=== PATIENT | female | born 1985 | race Caucasian/White ===

== ENCOUNTER 2020-08-21 17:05 | Outpatient (CLI) | payer BC ==
[2020-08-21] MEDS ORDERED: BETAMET ACET-BETAMETH SOD PHOS 6 MG/ML MDV IM SCH (18:45)
[2020-08-21 18:56] VITALS: BP 120/56; PULSE 94; RESP 16; TEMP 96.8
--- NOTE | 2020-09-12 15:31 | P.MSEPDOC ---
Presenting Problems - Arrival Data Date of Arrival on Unit: 08/21/20 Time of Arrival on Unit: 17:05 Mode of Transport: Ambulatory - Complaint OB-Reason for Admission/Chief Complaint: Possible Onset of Labor Comment: Contractions x 1 wk, increasing today, loss of mucus plug Medical History - Information : 5 Para: 4 Term: 4 : 0 Abortions: Spontaneous or Elective: 0 Number of Living Children: 4 - Gestational Age Gestational Age by HOLDEN (wks/days): 34 Weeks and 3 Days Review of Systems - Review of Systems Constitutional: No problems Breast: No problems ENT: No problems Cardiovascular: No problems Respiratory: No problems Gastrointestinal: No problems Genitourinary: No problems Musculoskeletal: No problems Neurological: No problems Skin: No problems Vital Signs - Temperature Temperature: 96.8 F Temperature Source: Tympanic - Pulse Right Sitting Brachial Pulse Rate: 94 Pulse Assessment Method: Automatic Cuff - Respirations Respiratory Rate: 16 Oxygen Delivery Method: Room Air O2 Sat by Pulse Oximetry: 100 - Blood Pressure Right Arm Sitting Blood Pressure: 120/56 Blood Pressure Mean: 77 Blood Pressure Source: Automatic Cuff Medical Screen Scoring (Pre) - Cervical Exam Dilation: 1-3 cm = 1 Effacement: Exam Deferred Membranes: Intact - Uterine Contractions Frequency: > 5 minutes apart = 1 Duration: N/A Intensity: N/A - Maternal Vital Signs Maternal Temperature: N/A Maternal Blood Pressure: N/A Signs of Preeclampsia: N/A Maternal Respirations: N/A - Maternal Trauma Maternal Trauma: N/A - Assessment - Baby A Baseline FHR: 135 Heart Rate - NICHD Category: Category I (Normal) = 0 NST: Reactive Position: N/A Station: N/A - Total Score - Baby A Total Score - Baby A: 2 - Total Score - Baby B Total Score - Baby B: 2 - Total Score - Baby C Total Score - Baby C: 2 - Level of Risk - Baby A Level of Risk - Baby A: Low (0-5) - Level of Risk - Baby B Level of Risk - Baby B: Low (0-5) - Level of Risk - Baby C Level of Risk - Baby C: Low (0-5) Physician Notification (Pre) - Physician Notified Physician Notified Date: 08/21/20 Physician Notified Time: 18:35 New Order Received: Yes - Notification Comment Comment: Ernestine zambrano\Dr. Painting, FFN +, SVE 1/thick/-3, firm. No change in SVE after 1 hr, irregular contractions. Orders rec'd for celestone, return for second celestone tomorrow, discharge home c\ labor precautions and follow up next week as scheduled. Disposition - Disposition OB Disposition: Discharge to home, Written follow up instructions reviewed Discharge Date: 08/21/20 Discharge Time: 18:55 I agree with the RN Medical Screening Exam: Yes Physician's MSE Comment: Patient was not seen or examined by myself Case reviewed; plan agreed upon as documented in EMR&OBIX.: Yes Diagnosis: FALSE LABOR BEFORE 37 COMPLETED WEEKS OF GEST, THIRD TRI
== END 2020-08-21 18:55 | disposition home or self-care (01) ==
LOC: FBPOP 17:05
PROVIDERS: ATTEND Obstetrics & Gynecology Obstetrics
DX: O47.03 False labor before 37 completed weeks of gestation, third trimester (principal); Z3A.34 34 weeks gestation of pregnancy
CPT/HCPCS: 59025; 99214; 96372; 82731; J0702

== ENCOUNTER 2020-08-22 18:20 | Outpatient (CLI) | payer BC ==
[2020-08-22] MEDS ORDERED: BETAMET ACET-BETAMETH SOD PHOS 6 MG/ML MDV IM SCH (19:00)
[2020-08-22 19:12] VITALS: BP 109/55; PULSE 82; RESP 16; TEMP 97.4
--- NOTE | 2020-09-12 15:34 | P.MSEPDOC ---
Presenting Problems - Arrival Data Date of Arrival on Unit: 08/22/20 Time of Arrival on Unit: 18:15 Mode of Transport: Ambulatory - Complaint OB-Reason for Admission/Chief Complaint: Celestone Injection Comment: repeat celestone Medical History - Information : 5 Para: 4 Term: 4 Number of Living Children: 4 - Gestational Age Gestational Age by HOLDEN (wks/days): 34 Weeks and 4 Days Review of Systems - Review of Systems Constitutional: No problems Breast: No problems ENT: No problems Cardiovascular: No problems Respiratory: No problems Gastrointestinal: No problems Genitourinary: No problems Musculoskeletal: No problems Neurological: No problems Skin: No problems Vital Signs - Temperature Temperature: 97.4 F Temperature Source: Temporal Artery Scan - Pulse Apical Pulse Rate: 82 Pulse Assessment Method: Automatic Cuff - Respirations Respiratory Rate: 16 Oxygen Delivery Method: Room Air - Blood Pressure Right Arm Blood Pressure: 109/55 Blood Pressure Mean: 73 Blood Pressure Source: Automatic Cuff Medical Screen Scoring (Pre) - Cervical Exam Dilation: Exam Deferred Effacement: Exam Deferred Membranes: Intact - Uterine Contractions Frequency: N/A Duration: N/A Intensity: N/A - Maternal Vital Signs Maternal Temperature: N/A Maternal Blood Pressure: N/A Signs of Preeclampsia: N/A Maternal Respirations: N/A - Maternal Trauma Maternal Trauma: N/A - Assessment - Baby A Baseline FHR: 140 Heart Rate - NICHD Category: Category I (Normal) = 0 NST: Reactive Position: N/A Station: N/A - Total Score - Baby A Total Score - Baby A: 0 - Total Score - Baby B Total Score - Baby B: 0 - Total Score - Baby C Total Score - Baby C: 0 - Level of Risk - Baby A Level of Risk - Baby A: Low (0-5) - Level of Risk - Baby B Level of Risk - Baby B: Low (0-5) - Level of Risk - Baby C Level of Risk - Baby C: Low (0-5) Physician Notification (Pre) - Physician Notified Physician Notified Date: 08/22/20 Physician Notified Time: 18:50 New Order Received: Yes (discharged home with instructions) - Notification Comment Comment: repeat celestone injection given Disposition - Disposition OB Disposition: Discharge to home Discharge Date: 02/05/21 Discharge Time: 19:10 I agree with the RN Medical Screening Exam: Yes Physician's MSE Comment: Patient was not seen or examined by myself Case reviewed; plan agreed upon as documented in EMR&OBIX.: Yes Diagnosis: LABOR WITHOUT DELIVERY, THIRD TRIMESTER
== END 2020-08-22 19:10 | disposition home or self-care (01) ==
LOC: FBPOP 18:20
PROVIDERS: ATTEND Obstetrics & Gynecology Obstetrics
DX: O60.03 Preterm labor without delivery, third trimester (principal); Z3A.34 34 weeks gestation of pregnancy
CPT/HCPCS: 59025; 96372; J0702; 99213

== ENCOUNTER 2020-08-31 09:13 | Outpatient (CLI) | payer BC ==
[2020-08-31 11:33] VITALS: BP 116/69; PULSE 88; RESP 18; TEMP 98.1
== END 2020-08-31 10:25 | disposition home or self-care (01) ==
LOC: FBPOP 09:13
PROVIDERS: ATTEND Obstetrics & Gynecology
DX: O26.93 Pregnancy related conditions, unspecified, third trimester (principal); Z3A.35 35 weeks gestation of pregnancy
CPT/HCPCS: 59025; 84112; 99213

== ENCOUNTER 2020-09-12 06:00 | Inpatient (IN) | payer BC, MEDICAID ==
[2020-09-12] MEDS ORDERED: TERBUTALINE 1 MG/ML VIAL SQ PRN (13:00)
[2020-09-12] MEDS ORDERED: LIDOCAINE 0.5% (PF) 5 MG/ML (50 ML SDV) SQ PRN (13:00)
[2020-09-12] MEDS ORDERED: OXYTOCIN 10 UNIT/ML 1 ML VIAL IM PRN (13:00)
[2020-09-12] MEDS ORDERED: LACTATED RINGERS 1,000 ML IV SCH (13:00)
[2020-09-12] MEDS ORDERED: METHYLERGONOVINE 0.2 MG/ML 1 ML AMP IM PRN (13:00)
[2020-09-12] MEDS ORDERED: OXYTOCIN 30 UNITS/500 ML NS 30 UNIT in SALINE 1 500ML.BAG IV SCH ×2 (13:00→21:30)
[2020-09-12] MEDS ORDERED: CARBOPROST TROMETHAMINE 250 MCG/ML 1 ML AMP IM PRN (13:00)
[2020-09-12 13:22] LABS: Basophils % (A) 0 %; Eosinophils # (A) 0.2 k/uL (0-0.7); Eosinophils % (A) 2 %; HCT 34.2 % (34.0-46.0); HGB 11.4 gm/dL (11.4-16.0); Lymphocytes # (A) 2.6 k/uL (1.0-4.8); Lymphocytes % (A) 21 %; MCH 31.1 pg (25.0-35.0); MCHC 33.4 g/dL (31.0-37.0); MCV 93.2 fL (80.0-100.0); Mean Platelet Volume 9.1; Monocytes # (A) 0.6 k/uL (0-1.0); Monocytes % (A) 5 %; Neutrophils % (A) 71 %; Platelet Count 273 k/uL (150-450); RBC 3.67 m/uL (3.80-5.40); RDW 14.1 % (11.5-15.5); WBC 12.6 k/uL (3.8-10.6)
[2020-09-12 13:33] LABS: ALT 14 U/L (4-34); AST 18 U/L (14-36); African American GFR (CKD) >90 (>60 ml/min/1.73 sqM); Blood Urea Nitrogen 7 mg/dL (7-17); LDH 313 U/L (313-618); Non-African American GFR(CKD) >90 (>60 ml/min/1.73 sqM); Uric Acid 3.2 mg/dL (3.7-7.4)
[2020-09-12 13:58] LABS: INR 0.8 (<1.2); Prothrombin Time 9.3 sec (9.0-12.0)
[2020-09-12 14:03] LABS: Partial Thromboplastin Time 21.1 sec (22.0-30.0)
[2020-09-12] MEDS: BUTORPHANOL 1 MG/ML 1 ML VIAL IV PRN ×2 (19:22→21:08)
[2020-09-12] MEDS ORDERED: LIDOCAINE 2% GEL 30 ML TUBE TOPICAL ONE (19:32)
[2020-09-12] MEDS ORDERED: HYDROCORTISONE 2.5% RECTAL CREAM 30 GM TUBE RECTAL PRN (21:24)
[2020-09-12] MEDS ORDERED: diphenhydrAMINE 50 MG/ML 1 ML VIAL IVP PRN ×2 (21:24)
[2020-09-12] MEDS ORDERED: ZOLPIDEM 5 MG TAB PO PRN (21:24)
[2020-09-12] MEDS ORDERED: diphenhydrAMINE 25 MG CAP PO PRN (21:24)
[2020-09-12] MEDS ORDERED: LANOLIN CREAM 5 GM TUBE TOPICAL PRN (21:24)
[2020-09-12] MEDS ORDERED: BENZOCAINE/MENTHOL SPRAY 1 GM/SPRAY AEROSOL TOPICAL PRN (21:24)
[2020-09-12] MEDS ORDERED: diphenhydrAMINE 50 MG CAP PO PRN (21:24)
[2020-09-12] MEDS ORDERED: IBUPROFEN 600 MG TAB PO PRN (21:24)
[2020-09-12] MEDS ORDERED: SIMETHICONE 80 MG CHEWABLE PO PRN (21:24)
--- NOTE | 2020-09-12 21:27 | P.PROBDLV ---
Vaginal Delivery Note - . Vaginal Delivery Note: This is a 35-year-old 5 para 4004 at 37-4/7 weeks that presented to the labor and delivery from the office after noting contractions every 10 minutes and states she wasn't feeling well. Patient has a significant medical history for further details please see the dictated history and physical. Patient was admitted to labor and delivery and Pitocin induction of labor was begun. She underwent amniotomy and clear fluid was obtained. Patient progressed through labor eventually Becoming complete. Patient started pushing and with good maternal effort she had a normal spontaneous vaginal delivery of a viable male infant at 2057, weight of 7 lbs. 6 oz. and Apgars of 9 and 9 at one and 5 minutes respectively. After two-minute delayed the local cord was doubly clamped and cut and the infant was handed off to the maternal abdomen. The placenta was delivered spontaneously intact with a three-vessel cord being noted. A first 3 vaginal laceration was noted. A rectal exam was performed and noted to be normal in nature. The uterus was noted be firm and b elow the umbilicus. A straight blood loss 100 mL. Patient and tolerated delivery well and are resting comfortably.
--- NOTE | 2020-09-12 21:28 | P.HPOB ---
History of Present Illness H&P Date: 09/12/20 Chief Complaint: IUP at 37 and 4/sevenths weeks, AMA, history of PE/DVT This is a 35-year-old 5 para 4004 at 37-4/7 weeks that presented to the office for routine visit. Patient states she has been not feeling well over the evening, she notes dizziness, headache, overall generalized malaise. On appearance she appeared ill, She does note good movement. Patient had a reactive NST in the office. Patient states she is nicanor every 10 minutes and there uncomfortable. On cervical exam she is 2/70/-2 station. She states she did not take her Lovenox this morning. Patient states she feels contractions are getting more uncomfortable, given her complicated medical history patient is sent to labor and delivery for planned induction of labor. On bloodwork this patient is a blood type of A- for which she receive program at 28 weeks, rubella status immune, RPR nonreactive, hepBSag surface antigen negative, HIV negative she did pass her one-hour Glucola, date of program was 07/07. GBS was negative on 09/03. Review of Systems Constitutional: Reports as per HPI, Reports fatigue, Denies chills, Denies fever Ears, nose, mouth and throat: Reports headache Cardiovascular: Reports leg edema Respiratory: Reports dyspnea Gastrointestinal: Denies constipation, Denies diarrhea, Denies nausea, Denies vomiting Genitourinary: Reports Past Medical History Past Medical History: Asthma, Deep Vein Thrombosis (DVT), Pulmonary Embolus (PE) Additional Past Medical History / Comment(s): pituitary tumor History of Any Multi-Drug Resistant Organisms: None Reported Past Surgical History: Adenoidectomy, Tonsillectomy Past Anesthesia/Blood Transfusion Reactions: No Reported Reaction Past Psychological History: Anxiety, Depression, Panic Disorder, PTSD Smoking Status: Never smoker Past Alcohol Use History: Occasional Past Drug Use History: None Reported - Past Family History Daughter(s) Additional Family Medical History / Comment(s): autism Mother Family Medical History: Cancer Medications and Allergies Home Medications Medication Instructions Recorded Confirmed Type Aspirin 81 mg PO DAILY MDD 81 mg 08/21/20 09/12/20 History Enoxaparin [Lovenox] 60 mg SQ Q12H MDD 120 mg 08/21/20 09/12/20 History Iron 325 mg PO DAILY MDD 325 mg 08/21/20 09/12/20 History Pnv 11/Iron Fum/Folic Acid/Om3 1 each PO DAILY MDD 1 tab 08/21/20 09/12/20 History [Virt-Joe Dha Softgel] Albuterol Inhaler [Ventolin Hfa 2 puff INHALATION RT-TID MDD 6 08/31/20 09/12/20 History Inhaler] puffs Allergies Allergy/AdvReac Type Severity Reaction Status Date / Time hydromorphone [From Dilaudid] Allergy Rash/Hives Verified 09/12/20 12:56 rivaroxaban [From Xarelto] Allergy Rash/Hives Verified 09/12/20 12:56 Exam Osteopathic Statement: *. No significant issues noted on an osteopathic structural exam other than those noted in the History and Physical/Consult. 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 Results Result Diagrams: 09/12/20 12:54 09/12/20 12:54 Abnormal Lab Results - Last 24 Hours (Table) 09/12/20 09/12/20 09/12/20 Range/Units 12:54 12:54 12:54 WBC 12.6 H (3.8-10.6) k/uL RBC 3.67 L (3.80-5.40) m/uL Neutrophils # 9.0 H (1.3-7.7) k/uL APTT 21.1 L (22.0-30.0) sec Fibrinogen 613 H (200-500) mg/dL Creatinine 0.45 L (0.52-1.04) mg/dL Uric Acid 3.2 L (3.7-7.4) mg/dL Assessment and Plan (1) 37 weeks gestation of Current Visit: Yes Status: Acute Code(s): Z3A.37 - 37 WEEKS GESTATION OF SNOMED Code(s): 30038932 (2) AMA (advanced maternal age) multigravida 35+ Current Visit: Yes Status: Acute Code(s): O09.529 - SUPERVISION OF ELDERLY MULTIGRAVIDA, UNSPECIFIED TRIMESTER SNOMED Code(s): 545781330 (3) DVT (deep venous thrombosis) Current Visit: Yes Status: Acute Code(s): I82.409 - ACUTE EMBOLISM AND THOMBOS UNSP DEEP VN UNSP LOWER EXTREMITY SNOMED Code(s): 283886140 (4) Pulmonary embolism Current Visit: Yes Status: Acute Code(s): I26.99 - OTHER PULMONARY EMBOLISM WITHOUT ACUTE COR PULMONALE SNOMED Code(s): 24810446 Plan: This 35-year-old at 37-4/7 weeks presents for induction of labor secondary to AMA, history of DVT/PE be a on Lovenox. Last Lovenox dose was 9 PM. Patient is ill-appearing today stating she doesn't feel well, notes dizziness, headache. Patient has been seen MFM at [facility] for high-risk care. Consults are on chart. Patient has had some fall off of growth although growth has been noted to be normal. Patient was seen on labor and delivery proximally 2 weeks ago in addition and received steroids for positive fibronectin and contractions. Pitocin is begun per hospital protocol, amniotomy is performed, anesthesia is counseled for epidural and recommendations given her Lovenox use.
[2020-09-13] MEDS: ACETAMINOPHEN TAB 325 MG TAB PO PRN ×5 (01:14→21:55)
[2020-09-13] MEDS: SENNOSIDES-DOCUSATE SODIUM 1 EACH TAB PO SCH ×2 (08:03→19:55)
--- NOTE | 2020-09-13 10:18 | P.PNOBGVD ---
Subjective - Subjective Principal diagnosis: day 1 status post normal spontaneous vaginal delivery Interval history: Patient is doing well . She is involuting and voiding without difficulty. She states her lochia is minimal. She is breast-feeding. She states her pain is well-controlled. Patient reports: Reports appetite normal, Reports voiding normally, Reports pain well controlled, Reports ambulating normally [place]: doing well Objective - Latest Vital Signs Latest vital signs: Vital Signs Temp Pulse Resp BP Pulse Ox 09/13/20 08:00 98.2 F 70 14 99/58 09/13/20 04:00 97.2 F L 62 16 110/67 09/13/20 00:00 98.4 F 62 16 127/73 09/12/20 23:15 97.1 F L 49 L 16 114/57 09/12/20 22:15 97.9 F 80 16 130/69 09/12/20 22:00 98.2 F 82 16 106/55 09/12/20 21:45 97.7 F 77 16 110/59 09/12/20 21:30 97.7 F 80 16 112/55 09/12/20 21:15 97.9 F 75 16 119/64 09/12/20 12:56 98.2 F 93 18 118/74 99 Intake and Output 09/12/20 09/13/20 09/13/20 22:59 06:59 14:59 Output Total 350 Balance -350 Output: Estimated Blood Loss 350 Other: # Voids 2 2 - Exam Extremities: Present: normal, edema Abdomen: Present: normal appearance, soft Uterus: Present: normal, firm - Labs Labs: Abnormal Lab Results - Last 24 Hours (Table) 09/12/20 09/12/20 09/12/20 Range/Units 12:54 12:54 12:54 WBC 12.6 H (3.8-10.6) k/uL RBC 3.67 L (3.80-5.40) m/uL Neutrophils # 9.0 H (1.3-7.7) k/uL APTT 21.1 L (22.0-30.0) sec Fibrinogen 613 H (200-500) mg/dL Creatinine 0.45 L (0.52-1.04) mg/dL Uric Acid 3.2 L (3.7-7.4) mg/dL Assessment and Plan (1) 37 weeks gestation of Current Visit: Yes Status: Acute Code(s): Z3A.37 - 37 WEEKS GESTATION OF SNOMED Code(s): 41526005 (2) AMA (advanced maternal age) multigravida 35+ Current Visit: Yes Status: Acute Code(s): O09.529 - SUPERVISION OF ELDERLY MULTIGRAVIDA, UNSPECIFIED TRIMESTER SNOMED Code(s): 533692255 (3) DVT (deep venous thrombosis) Current Visit: Yes Status: Acute Code(s): I82.409 - ACUTE EMBOLISM AND THOMBOS UNSP DEEP VN UNSP LOWER EXTREMITY SNOMED Code(s): 123356622 (4) Pulmonary embolism Current Visit: Yes Status: Acute Code(s): I26.99 - OTHER PULMONARY EMBOLISM WITHOUT ACUTE COR PULMONALE SNOMED Code(s): 59303535 (5) Status post vaginal delivery Current Visit: Yes Status: Acute Code(s): NZL9253 - SNOMED Code(s): 038285213 Plan: Patient is doing well . Bleeding is expected for vaginal delivery, w ill restart Lovenox this morning. Anticipate discharge home tomorrow
[2020-09-13] MEDS: ENOXAPARIN 60 MG/0.6 ML SYRINGE SQ SCH ×2 (10:50→21:55)
[2020-09-13] MEDS ORDERED: Rhogam IMMUNE GLOBULIN 1,500 UNIT/1 ML IM ONE (11:33)
--- NOTE | 2020-09-14 08:22 | P.DS ---
Providers Date of admission: 09/12/20 12:30 Expected date of discharge: 09/14/20 Attending physician: Germaine Painting Primary care physician: Stated None - Discharge Diagnosis(es) (1) 37 weeks gestation of Current Visit: Yes Status: Acute (2) AMA (advanced maternal age) multigravida 35+ Current Visit: Yes Status: Acute (3) DVT (deep venous thrombosis) Current Visit: Yes Status: Acute (4) Pulmonary embolism Current Visit: Yes Status: Acute (5) Status post vaginal delivery Current Visit: Yes Status: Acute Hospital Course: This is a 35-year-old G5 now P5 status post normal spontaneous vaginal delivery of viable male , weight of 7 lbs. 6 oz. at 2057 on 09/12. Patient is a known patient to myself with a, located history of PE/DVT that has been seeing [facility] for maternal- medicine care. Patient had been on Lovenox extremely milligrams subcutaneously twice a day. Patient did well through the . Growth was noted to be good throughout. Patient presented for routine visit on Tuesday and was ill in appearance. Patient noted to be nicanor and uncomfortable. Patient was sent to labor and delivery and admitted. Patient did well with delivery although unable to receive an epidural secondary to Lovenox timing. Patient's post course has been uneventful. She restarted her Lovenox approximate 12 hours after delivery and bleeding has been moderate/normal. Patient is noted to be ambulating and voiding without difficulty. She is tolerating a regular diet without nausea or vomiting. She is breast-feeding. She would like discharge home today. Patient Condition at Discharge: Good Plan - Discharge Summary New Discharge Prescriptions: No Action Aspirin 81 mg PO DAILY MDD 81 mg Enoxaparin [Lovenox] 60 mg SQ Q12H MDD 120 mg Pnv 11/Iron Fum/Folic Acid/Om3 [Virt-Joe Dha Softgel] 1 each PO DAILY MDD 1 tab Iron 325 mg PO DAILY MDD 325 mg Albuterol Inhaler [Ventolin Hfa Inhaler] 2 puff INHALATION RT-TID MDD 6 puffs Discharge Medication List Aspirin 81 mg PO DAILY MDD 81 mg 08/21/20 [History] Enoxaparin [Lovenox] 60 mg SQ Q12H MDD 120 mg 08/21/20 [History] Iron 325 mg PO DAILY MDD 325 mg 08/21/20 [History] Pnv 11/Iron Fum/Folic Acid/Om3 [Virt-Joe Dha Softgel] 1 each PO DAILY MDD 1 tab 08/21/20 [History] Albuterol Inhaler [Ventolin Hfa Inhaler] 2 puff INHALATION RT-TID MDD 6 puffs 08/31/20 [History] Follow up Appointment(s)/Referral(s): Germaine Painting DO [Doctor of Osteopathic Medicine] - 2 Weeks Patient Instructions/Handouts: Vaginal Delivery (DC), Vaginal Delivery (GEN) Activity/Diet/Wound Care/Special Instructions: Discharge instructions are reviewed with the patient patient can expect menstrual-like bleeding for 4-6 weeks after delivery. Patient is to call the office with any fevers or foul odor or concerns prior to her visit. Discharge Disposition: HOME SELF-CARE
[2020-09-14] MEDS ORDERED: PRENATAL VIT-IRON-FOLIC ACID 1 EACH CAP PO SCH (09:00)
[2020-09-14 10:16] VITALS: BP 112/69; PULSE 83; RESP 14; TEMP 99
[2020-09-14] MEDS: SENNOSIDES-DOCUSATE SODIUM 1 EACH TAB PO SCH (10:19)
[2020-09-14] MEDS: ENOXAPARIN 60 MG/0.6 ML SYRINGE SQ SCH (10:19)
== END 2020-09-14 10:23 | disposition home or self-care (01) | DRG 807 ==
LOC: 4FBP 12:30
PROVIDERS: ADMIT Obstetrics & Gynecology Obstetrics; ATTEND Obstetrics & Gynecology Obstetrics
PROC: 10E0XZZ Delivery of Products of Conception, External Approach (ICD-10-PCS; principal; 2020-09-12)
PROC: 10907ZC Drainage of Amniotic Fluid, Therapeutic from Products of Conception, Via Natural or Artificial Opening (ICD-10-PCS; principal; 2020-09-12)
DX: O75.89 Other specified complications of labor and delivery (principal); Z37.0 Single live birth; Z3A.37 37 weeks gestation of pregnancy; F32.9 Major depressive disorder, single episode, unspecified; F41.0 Panic disorder [episodic paroxysmal anxiety]; F43.10 Post-traumatic stress disorder, unspecified; O99.344 Other mental disorders complicating childbirth; O99.52 Diseases of the respiratory system complicating childbirth; J45.909 Unspecified asthma, uncomplicated; O71.4 Obstetric high vaginal laceration alone; Z86.711 Personal history of pulmonary embolism; Z86.718 Personal history of other venous thrombosis and embolism; Z79.82 Long term (current) use of aspirin; Z79.01 Long term (current) use of anticoagulants; Z88.5 Allergy status to narcotic agent; Z88.8 Allergy status to other drugs, medicaments and biological substances
CPT/HCPCS: 82565; 83615; 84450; 84460; 84520; 84550; 85025; 85384; 85461; 85610; 85730; 86850; 86900; 86901; 88307

== ENCOUNTER 2022-10-14 10:49 | Emergency (ER) | payer MEDICAID ==
[2022-10-14 10:53] VITALS: TEMP 98.2
[2022-10-14] MEDS ORDERED: SODIUM CHLORIDE 0.9% 500 ML 500 ML IV ONE (11:27)
[2022-10-14] MEDS ORDERED: methylPREDNISolone SOD SUCCI 125 MG/2 ML VIAL IV STA (11:27)
--- NOTE | 2022-10-14 11:32 | ED ---
General Adult HPI - General Chief complaint: Allergic Reaction Stated complaint: FACIAL SWELLING Time Seen by Provider: 10/14/22 11:16 Source: patient, RN notes reviewed Mode of arrival: ambulatory Limitations: no limitations - History of Present Illness Initial comments: 37-year-old female with a past medical history of pituitary adenoma, asthma presents to the emergency department with a chief complaint of right- sided facial swelling. Patient reports that she woke up this morning with her eye swollen. She is complaining of accompanying symptoms of numbness and tingling to the whole right side of her face. She denies any recent sick c ontacts. She's never had this before. She denies any vision changes, vision loss, difficulty swallowing, shortness of breath cough. She reports that she took Benadryl approximately one hour ago with some mild symptomatic relief. Patient states that she is currently on Eliquis and she has a history of pulmonary embolism. - Related Data Home Medications Medication Instructions Recorded Confirmed Aspirin 81 mg PO DAILY MDD 81 mg 08/21/20 09/12/20 Enoxaparin [Lovenox] 60 mg SQ Q12H MDD 120 mg 08/21/20 09/12/20 Iron 325 mg PO DAILY MDD 325 mg 08/21/20 09/12/20 Pnv 11/Iron Fum/Folic Acid/Om3 1 each PO DAILY MDD 1 tab 08/21/20 09/12/20 [Virt-Joe Dha Softgel] Albuterol Inhaler [Ventolin Hfa 2 puff INHALATION RT-TID MDD 6 08/31/20 09/12/20 Inhaler] puffs Previous Rx's Medication Instructions Recorded predniSONE 50 mg PO DAILY #5 tab 10/14/22 Allergies Allergy/AdvReac Type Severity Reaction Status Date / Time hydromorphone [From Dilaudid] Allergy Rash/Hives Verified 10/14/22 10:53 rivaroxaban [From Xarelto] Allergy Rash/Hives Verified 10/14/22 10:53 Review of Systems ROS Statement: Those systems with pertinent positive or pertinent negative responses have been documented in the HPI. ROS Other: All systems not noted in ROS Statement are negative. Past Medical History Past Medical History: Asthma, Deep Vein Thrombosis (DVT), Pulmonary Embolus (PE) Additional Past Medical History / Comment(s): pituitary tumor History of Any Multi-Drug Resistant Organisms: None Reported Past Surgical History: Adenoidectomy, Tonsillectomy Past Anesthesia/Blood Transfusion Reactions: No Reported Reaction Past Psychological History: Anxiety, Depression, Panic Disorder, PTSD Smoking Status: Vaper Past Alcohol Use History: Occasional Past Drug Use History: None Reported - Past Family History Daughter(s) Additional Family Medical History / Comment(s): autism Mother Family Medical History: Cancer General Exam Limitations: no limitations General appearance: alert, in no apparent distress Head exam: Present: atraumatic, normocephalic, normal inspection Eye exam: Present: normal appearance, PERRL, EOMI. Absent: scleral icterus, conjunctival injection, periorbital swelling ENT exam: Present: normal exam, normal oropharynx, mucous membranes moist, normal external ear exam Expanded Mouth exam: Present: normal external inspection, tongue normal. Absent: drooling Neck exam: Present: normal inspection. Absent: tenderness, meningismus, lymphadenopathy Respiratory exam: Present: normal lung sounds bilaterally. Absent: respiratory distress, wheezes, rales, rhonchi, stridor Cardiovascular Exam: Present: regular rate, normal rhythm, normal heart sounds. Absent: systolic murmur, diastolic murmur, rubs, gallop, clicks GI/Abdominal exam: Present: soft, normal bowel sounds. Absent: distended, tenderness, guarding, rebound, rigid Extremities exam: Present: normal inspection, full ROM, normal capillary refill. Absent: tenderness, pedal edema, joint swelling, calf tenderness Back exam: Present: normal inspection Neurological exam: Present: alert, oriented X3, CN II-XII intact Expanded Patient oriented to: Present: person, place, time Speech: Present: fluid speech Cranial nerves: EOM's Intact: Normal, Tongue Deviation: Normal, Nystagmus: Nor mal, Facial Sensation: Abnormal Right (decreased on Rside of face ), Facial Palsy with Forehead Movement: Abnormal Right Cerebellar function: Finger to Nose: Normal, Heel to Sandhu: Normal Upper motor neuron: Seng Neglect: Normal, Pronator Drift: Normal Sensory exam: Upper Extremity Light Touch: Normal, Lower Extremity Light Touch: Normal Motor strength exam: RUE: 5, LUE: 5, RLE: 5, LLE: 5 Eye Response: (4) open spontaneously Motor Response: (6) obeys commands Verbal Response: (5) oriented Psychiatric exam: Present: normal affect, normal mood Skin exam: Present: warm, dry, intact, normal color. Absent: rash Course Vital Signs 10/14/22 10/14/22 10/14/22 10:50 11:37 12:30 Temperature 98.2 F 98.2 F Pulse Rate 75 74 54 L Respiratory 20 18 15 Rate Blood Pressure 123/71 122/91 122/68 O2 Sat by Pulse 99 100 100 Oximetry 10/14/22 14:18 Temperature Pulse Rate 60 Respiratory 16 Rate Blood Pressure 121/66 O2 Sat by Pulse 99 Oximetry - Reevaluation(s) Reevaluation #1: 10/14/22 11:37 Patient states having adverse reaction to Solu-Medrol in the past. Prednisone ordered. Reevaluation #2: 10/14/22 12:29 Patient reevaluated. Patient's eye swelling has improved. Medical Decision Making - Medical Decision Making Was pt. sent in by a medical professional or institution (, PA, YEAST DISTILLER, urgent care, hospital, or correction...) When possible be specific @ -[No] Did you speak to anyone other than the patient for history (EMS, parent, family, police, friend...)? What history was obtained from this source @ -[No] Did you review nursing and triage notes (agree or disagree)? Why? @ -[I reviewed and agree with nursing and triage notes] Were old charts reviewed (outside hosp., previous admission, EMS record, old EKG, old radiological studies, urgent care reports/EKG's, correction records)? Report findings @ -[No old charts were reviewed] Differential Diagnosis (chest pain, altered mental status, abdominal pain women, abdominal pain men, vaginal bleeding, weakness, fever, dyspnea, syncope, headache, dizziness, GI bleed, back pain, seizure, CVA, palpatations, mental health, musculoskeletal)? @ -[not applicable] EKG interpreted by me (3pts min.). @ -[As above] X-rays interpreted by me (1pt min.). @ -[None done] CT interpreted by me (1pt min.). @ -[None done] U/S interpreted by me (1pt. min.). @ -[None done] What testing was considered but not performed or refused? (CT, X-rays, U/S, labs)? Why? @ -[None] What meds were considered but not given or refused? Why? @ -[None] Did you discuss the management of the patient with other professionals (professionals i.e. , PA, YEAST DISTILLER, lab, RT, psych nurse, social work associate, family lawyer, teacher, staff air defense officer, bilingual patient support caseworker)? Give summary @ -[No] Was smoking cessation discussed for >3mins.? @ -[No] Was critical care preformed (if so, how long)? @ -[No] Were there social determinants of health that impacted care today? How? (Homelessness, low income, unemployed, alcoholism, drug addiction, transportation, low edu. Level, literacy, decrease access to med. care, assisted, rehab)? @ -[No] Was there de-escalation of care discussed even if they declined (Discuss DNR or withdrawal of care, Hospice)? DNR status @ -[No] What co-morbidities impacted this encounter? (DM, HTN, Smoking, COPD, CAD, Cancer, CVA, ARF, Chemo, Hep., AIDS, mental health diagnosis, sleep apnea, morbid obesity)? @ -[None] Was patient admitted / discharged? Hospital course, mention meds given and route, prescriptions, significant lab abnormalities, going to OR and other pertinent info. @ -Discharged. This is a 37-year-old female presents to the emergency department with allergic reaction.. Patient had a thorough history and physical exam performed heart rate regular rate and rhythm, lungs are clear to auscultation bilaterally. Abdomen is soft and non-tender, . Patient had lab work and imaging performed on the ED: Which was essentially unremarkable.. Patient was given 1L IV fluids and prednisone while in the ED symptomatic re lief. I discussed at length with the patient who verbalized understanding and is requesting discharge. Return precautions were discussed. Patient discharged in stable condition. Case discussed with Dr. Dyer who agrees with plan of care Undiagnosed new problem with uncertain prognosis? @ -[No] Drug Therapy requiring intensive monitoring for toxicity (Heparin, Nitro, Insulin, Cardizem)? @ -[No] Were any procedures done? @ -[No] Diagnosis/symptom? @ -angioedema Acute, or Chronic, or Acute on Chronic? @ -acute Uncomplicated (without systemic symptoms) or Complicated (systemic symptoms)? @ -uncomplicated Side effects of treatment? @ -[No] Exacerbation, Progression, or Severe Exacerbation? @ -[No] Poses a threat to life or bodily function? How? (Chest pain, [place], [place], pneumonia, PE, COPD, DKA, ARF, appy, cholecystitis, CVA, Diverticulitis, Homicidal, Suicidal, threat to staff... and all critical care pts) @ -low likelihood - Lab Data Result diagrams: 10/14/22 11:42 Lab Results 10/14/22 10/14/22 Range/Units 11:42 11:42 WBC 4.5 (3.8-10.6) k/uL RBC 4.23 (3.80-5.40) m/uL Hgb 12.3 (11.4-16.0) gm/dL Hct 37.9 (34.0-46.0) % MCV 89.6 (80.0-100.0) fL MCH 29.0 (25.0-35.0) pg MCHC 32.4 (31.0-37.0) g/dL RDW 13.6 (11.5-15.5) % Plt Count 281 (150-450) k/uL MPV 8.2 Neutrophils % 49 % Lymphocytes % 40 % Monocytes % 4 % Eosinophils % 4 % Basophils % 1 % Neutrophils # 2.2 (1.3-7.7) k/uL Lymphocytes # 1.8 (1.0-4.8) k/uL Monocytes # 0.2 (0-1.0) k/uL Eosinophils # 0.2 (0-0.7) k/uL Basophils # 0.0 (0-0.2) k/uL PT 10.4 (9.0-12.0) sec INR 1.0 (<1.2) APTT 22.5 (22.0-30.0) sec Disposition Clinical Impression: Allergic reaction Disposition: HOME SELF-CARE Condition: Stable Instructions (If sedation given, give patient instructions): Angioedema (ED) Additional Instructions: Please return to the nearest emergency department if symptoms worsen or persist. Prescriptions: predniSONE 50 mg PO DAILY #5 tab Is patient prescribed a controlled substance at d/c from ED?: No Referrals: Suad Ojeda NPC [STAFF PHYSICIAN] - 1-2 days Time of Disposition: 14:08
[2022-10-14] MEDS ORDERED: predniSONE 20 MG TAB PO STA (11:36)
[2022-10-14 12:07] LABS: Basophils % (A) 1 %; Eosinophils # (A) 0.2 k/uL (0-0.7); Eosinophils % (A) 4 %; HCT 37.9 % (34.0-46.0); HGB 12.3 gm/dL (11.4-16.0); Lymphocytes # (A) 1.8 k/uL (1.0-4.8); Lymphocytes % (A) 40 %; MCHC 32.4 g/dL (31.0-37.0); MCV 89.6 fL (80.0-100.0); Mean Platelet Volume 8.2; Monocytes # (A) 0.2 k/uL (0-1.0); Monocytes % (A) 4 %; Neutrophils # (A) 2.2 k/uL (1.3-7.7); Neutrophils % (A) 49 %; Platelet Count 281 k/uL (150-450); RBC 4.23 m/uL (3.80-5.40); RDW 13.6 % (11.5-15.5); WBC 4.5 k/uL (3.8-10.6)
[2022-10-14 12:18] LABS: Partial Thromboplastin Time 22.5 sec (22.0-30.0); Prothrombin Time 10.4 sec (9.0-12.0)
--- NOTE | 2022-10-14 12:42 | CT ---
EXAMINATION TYPE: CT brain vinicio wo con DATE OF EXAM: 10/14/2022 COMPARISON: None HISTORY: Right sided facial swelling. CT DLP: 1219.2 mGycm, Automated exposure control for dose reduction was used. CONTRAST: Patient injected with 0 mL of Isovue 300. CT of the brain is performed utilizing 3 mm thick sections through the posterior fossa and 3 mm thick sections through the remaining calvarium. Study is performed within 24 hours of arrival to the hospital. No abnormal hyperdensity is present to suggest an acute intracranial hemorrhage. No mass lesion is evident. No acute infarcts are evident. Ventricles and sulci are appropriate for the patient age. Paranasal sinuses and mastoid air cells within the [id number] are clear. IMPRESSIONS: 1. No acute intracranial process. Follow-up MRI can be performed as clinically indicated. CT cervical spine. COMPARISON: None CT of the cervical spine is performed in the axial plane at 2 mm thick sections. Reconstructed image s in the coronal, and sagittal plane are reviewed on the computer. No acute fractures are evident. Vertebral body alignment is normal. Disc heights are preserved. Vertebral body heights are preserved. No spinal canal stenosis is evident. No neural foraminal stenosis is evident. IMPRESSIONS: 1. No acute osseous abnormality cervical spine
[2022-10-14] MEDS ORDERED: ACETAMINOPHEN TAB 325 MG TAB PO STA (12:54)
[2022-10-14 14:19] VITALS: BP 121/66; PULSE 60; RESP 16
== END 2022-10-14 14:19 | disposition home or self-care (01) ==
LOC: EC 10:49
DX: J45.909 Unspecified asthma, uncomplicated (principal); T45.0X5A Adverse effect of antiallergic and antiemetic drugs, initial encounter; F41.9 Anxiety disorder, unspecified; F32.A Depression, unspecified; F17.290 Nicotine dependence, other tobacco product, uncomplicated; Z79.82 Long term (current) use of aspirin; Z79.899 Other long term (current) drug therapy; Z88.8 Allergy status to other drugs, medicaments and biological substances
CPT/HCPCS: 36415; 85025; 85610; 85730; 72125; 70450; 99284; 96360; J7512

== ENCOUNTER → 2022-11-01 | Outpatient (CLI) | payer MEDICAID ==
--- NOTE | 2022-11-04 22:44 | HM ---
HOLTER MONITOR REPORT STUDY PERFORMED: A 48-hour Holter. INDICATION: Cardiac arrhythmia. Underlying rhythm is sinus with an average heart rate of 81 beats per minute. Heart rate varied from 48 beats per minute to 156 beats per minute. There were no episodes of sustained ventricular or supraventricular tachyarrhythmias. No episodes of more than 2-second pauses. The patient did not have any episodes of atrial fibrillation or flutter. CONCLUSIONS: This 48-hour Holter revealed sinus rhythm with episodes of sinus bradycardia and sinus tachycardia without significant cardiac arrhythmia. MMODL / IJN: [id number] /
== END | disposition home or self-care (01) ==
LOC: RADECHMAIN 08:12
PROVIDERS: ATTEND Family Medicine
DX: R00.0 Tachycardia, unspecified (principal); I49.9 Cardiac arrhythmia, unspecified
CPT/HCPCS: 93225; 93226

== ENCOUNTER → 2023-04-01 | Outpatient (CLI) | payer MEDICAID ==
--- NOTE | 2023-04-01 20:51 | MR ---
EXAMINATION TYPE: MR mooney/katy/claudia wo con DATE OF EXAM: 04/01/2023 8:38 PM COMPARISON: NONE HISTORY: Pain low, mid and neck area, loss of mobility and strength Multiplanar MultiSpin echo imaging of the cervical spine was performed. Comparison: none C2-C3: No evidence for degenerative disc disease. No disc bulge/herniation or protrusion. No Canal stenosis. Foramina are patent bilaterally. C3-C4: Borderline to mild degenerative disc disease with decreased signal and loss of height. Mild le ft paracentral disc bulge with minimal effacement ventral thecal sac. Borderline to mild left foramin al encroachment. C4-C5: No evidence for degenerative disc disease. No disc bulge/herniation or protrusion. No Canal stenosis. Foramina are patent bilaterally. C5-C6: Borderline degenerative disc disease. Right lateral focal disc bulge situated at the level of the right neural foramen results in mild neural foraminal encroachment. No evidence for central steno sis. Left neural foramen is patent. C6-C7: No evidence for degenerative disc disease. No disc bulge/herniation or protrusion. No Canal stenosis. Foramina are patent bilaterally. C7-T1: No evidence for degenerative disc disease. No disc bulge/herniation or protrusion. No Canal stenosis. Foramina are patent bilaterally. Cervical segments are intact. There is normal alignment. Cervical spinal cord is of normal signal. Craniovertebral junction relationships are within normal limits. IMPRESSION: 1. Focal disc bulge situated at the level of the right C5-6 neural foramen with mild foraminal encroa chment. 2. Left paracentral disc bulge at C3-4. EXAMINATION TYPE: MR enriquez/claudia wo con DATE OF EXAM: 04/01/2023 8:38 PM COMPARISON: NONE HISTORY: Pain low, mid and neck area, loss of mobility and strength Multiplanar MultiSpin echo imaging of the thoracic spine was performed. Disc spaces: No evidence for herniation protrusion or significant degenerative disc disease. Spinal canal: No evidence for canal stenosis. No intrinsic or extrinsic lesion. Thoracic spinal cord: Thoracic spinal cord is of normal caliber and signal. Paraspinal soft tissues: No evidence for paraspinal mass. No destructive lesions seen. Vertebral segments: No evidence for fracture or bony lesion. IMPRESSION: Negative study EXAMINATION TYPE: MR enriquez/claudia wo con DATE OF EXAM: 04/01/2023 8:38 PM COMPARISON: NONE HISTORY: Pain low, mid and neck area, loss of mobility and strength Multiplanar, MultiSpin echo imaging of the lumbar spine was performed. L1-L2: Normal disc appearance without desiccation. No herniation, protrusion or disc bulging. No ca nal stenosis is present. Foramina are patent bilaterally. L2-L3: Normal disc appearance without desiccation. No herniation, protrusion or disc bulging. No ca nal stenosis is present. Foramina are patent bilaterally. L3-L4: Normal disc appearance without desiccation. No herniation, protrusion or disc bulging. No ca nal stenosis is present. Foramina are patent bilaterally. L4-L5: Moderate disc desiccation with posterocentral disc bulge with annular tear. Mild effacement ve ntral thecal sac. No evidence for central stenosis or lateral recess stenosis. No significant foramin al encroachment. L5-S1: Severe disc desiccation. Posterocentral disc bulge. Mild effacement ventral thecal sac. No elvis dence for disc herniation or central stenosis. Mild bilateral foraminal encroachment. Facet joint art hropathy. Degenerative endplate marrow change. Lumbar segments are intact. No paraspinal masses are identified. Conus medullaris has a normal appe arance. IMPRESSION: 1. Degenerative disc disease as discussed. 2. Disc bulge with annular tear L4-5. 3. L5-S1 disc bulging with mild bilateral foraminal encroachment.
== END | disposition home or self-care (01) ==
LOC: RADMRIMAIN 19:06
PROVIDERS: ATTEND Orthopaedic Surgery
DX: M47.26 Other spondylosis with radiculopathy, lumbar region (principal); M54.6 Pain in thoracic spine; M50.122 Cervical disc disorder at C5-C6 level with radiculopathy; M51.17 Intervertebral disc disorders with radiculopathy, lumbosacral region
CPT/HCPCS: 72141; 72146; 72148

== ENCOUNTER → 2023-06-04 | Outpatient (CLI) | payer MEDICAID ==
[2023-06-04 23:48] LABS: T4, Free (Free Thyroxine) 1.08 ng/dL (0.80-1.80)
[2023-06-05 06:49] LABS: Follicle Stimulating Hormone 6.1 mIU/mL; Luteinizing Hormone 10.2 mIU/mL; Prolactin 51.3 ng/mL (2.800-29.200)
== END | disposition home or self-care (01) ==
LOC: LABWHC1 10:38
DX: E22.1 Hyperprolactinemia (principal)
CPT/HCPCS: 36415; 82024; 82533; 83001; 83002; 83003; 84146; 84305; 84439; 84443